=== PATIENT | female | born 1955 | race Caucasian/White ===

== ENCOUNTER 2018-11-28 17:17 | Inpatient (IN) | payer BC ==
[~2018-11-28] VITALS: Ht 160 cm; Wt 83.2 kg
[~2018-11-28 17:17] MED LIST: heparin, porcine-25,000 units/D5-250ml premix IV ONE
[2018-11-28] MEDS ORDERED: IBUP-24 PO (17:33)
[2018-11-28] MEDS ORDERED: magnesium 4gm in 100ml NS 100 ML IV PRN (18:00)
[2018-11-28] MEDS ORDERED: HYDROcodone/acetaminophen 5mg/325mg tablet PO PRN (18:00)
[2018-11-28] MEDS ORDERED: morphine 2 MG/ML inj. syringe IV PRN ×2 (18:00)
[2018-11-28] MEDS ORDERED: potassium CL 10mEq/100ml bag 100 ML IV PRN ×2 (18:00)
[2018-11-28] MEDS: K and/or MAG REPLACEMENT MC SCH (18:00)
[2018-11-28] MEDS ORDERED: acetaminophen 325mg tablet PO PRN ×2 (18:00)
[2018-11-28] MEDS ORDERED: magnesium 2GM in 50ml NS 50 ML IV PRN (18:00)
[2018-11-28] MEDS ORDERED: HYDROcodone/acetaminophen 10/325mg tab PO PRN (18:00)
[2018-11-28] MEDS ORDERED: diphenhydrAMINE 25mg capsule PO PRN (18:00)
[2018-11-28] MEDS ORDERED: ondansetron/PF 4mg/2ml inj IV PRN (18:00)
[2018-11-28] MEDS ORDERED: nitroGLYCERIN 0.4mg SUBLingual tab SL PRN (18:00)
[2018-11-28] MEDS ORDERED: atorvastatin 20mg tablet PO SCH (18:00)
[2018-11-28] MEDS ORDERED: magnesium hydroxide 30ml (MOM) UD suspension PO PRN (18:00)
[2018-11-28] MEDS ORDERED: mag hydrox/Alum hydrox/simeth 30ml oral suspension PO PRN (18:00)
[2018-11-28] MEDS ORDERED: potassium Cl 20 mEq SR tablet PO PRN (18:00)
[2018-11-28] MEDS ORDERED: normal saline 1000ml 1,000 ML IV SCH (18:00)
[2018-11-28] MEDS ORDERED: magnesium Cl slow-release 64mg tablet PO PRN (18:00)
[2018-11-28 18:08] LABS: BASOPHILS % (AUTO) 0.2 % (0-1); EOSINOPHILS # (AUTO) 0.1 X10'3 (0-0.9); EOSINOPHILS % (AUTO) 0.7 % (0-6); HEMATOCRIT 41.9 % (35.0-45.0); HEMOGLOBIN 14.5 g/dl (12.0-16.0); LYMPHOCYTES # (AUTO) 1.1 X10'3 (1.1-4.8); LYMPHOCYTES % (AUTO) 9.9 % (21-51); MEAN CORPUSCULAR HEMOGLOBIN 31.1 PG (27.0-31.0); MEAN CORPUSCULAR HGB CONC 34.5 g/dL (33.0-36.5); MEAN CORPUSCULAR VOLUME 90.1 FL (78-98); MEAN PLATELET VOLUME 7.7 FL (7.4-10.4); MONOCYTES # (AUTO) 0.5 X10'3 (0-0.9); MONOCYTES % (AUTO) 4.1 % (2-12); NEUTROPHILS # (AUTO) 9.3 X10'3 (1.8-7.7); NEUTROPHILS % (AUTO) 85.1 % (42-75); PLATELET COUNT 293 X10'3 (140-440); RED BLOOD COUNT 4.65 X10'6 (4.20-5.60); RED CELL DISTRIBUTION WIDTH 13.5 % (11.5-14.5)
[2018-11-28 18:24] LABS: PARTIAL THROMBOPLASTIN TIME 31 SECONDS (22-32)
[2018-11-28 18:26] LABS: ALANINE AMINOTRANSFERASE 83 U/L (12-78); ALBUMIN 3.7 G/DL (3.4-5.0); ALBUMIN/GLOBULIN RATIO 1.2 (1.1-1.5); ALKALINE PHOSPHATASE 123 IU/L (46-116); ANION GAP 10 (8-16); ASPARTATE AMINO TRANSFERASE 122 U/L (10-37); BLOOD UREA NITROGEN 11 MG/DL (7-18); CHLORIDE 110 MMOL/L (99-107); CREATININE 0.92 MG/DL (0.40-0.90); GLUCOSE 111 MG/DL (70-104); POTASSIUM 3.9 MMOL/L (3.5-5.1); SODIUM 143 MMOL/L (135-145); TOTAL CARBON DIOXIDE 22.7 MMOL/L (24-32); TOTAL PROTEIN 6.7 G/DL (6.4-8.2); eGFR 62 ML/MIN
[2018-11-28 18:28] LABS: HEMOGLOBIN A1C 5.7 % (4.5-6.2)
[2018-11-28] MEDS ORDERED: metoprolol tartrate 1mg/ml inj IV ONE (18:45)
[2018-11-28] MEDS ORDERED: nitroGLYCERIN 0.4mg/hour patch TD ONE (18:45)
[2018-11-28] MEDS ORDERED: metoprolol tartrate 25mg tablet PO ONE (18:45)
--- NOTE | 2018-11-28 18:50 | NUR ---
SPOKE TO DR HAN AND WET AND DRY SUGAR BIN OPERATOR CAITLIN: REGARDING PATIENT'S CP AND PREVIOUS MEDS GIVN AT [facility]. UNABLE TO FIND CHART FROM [facility] PATIENT RECEIVED 80 OR 85 MG LOVENOX SQ AT [facility] AND 3 BABY ASA AT HER PMD
[2018-11-28 18:52] LABS: CLARITY,URINE CLEAR (Clear); COLOR,URINE YELLOW (Yellow); GLUCOSE, URINE NEGATIVE (Neg); KETONES,URINE TRACE mg/dl (Neg); LEUKOCYTE ESTERASE ,URINE NEGATIVE (Neg); NITRITES, URINE NEGATIVE (Neg); OCCULT BLOOD,URINE NEGATIVE (Neg); PROTEIN,URINE NEGATIVE (Neg); UROBILINOGEN,URINE 0.2 E.U/dL (0.2-1.0)
[2018-11-28 18:55] LABS: UA COLLECTION TYPE CLN CATCH MIDSTREAM
[2018-11-28 18:56] LABS: MAGNESIUM 1.8 MG/DL (1.5-2.4)
[2018-11-28] MEDS ORDERED: aspirin 81mg tab.chew PO STA (19:00)
--- NOTE | 2018-11-28 19:02 | NUR ---
2ND PAGE FOR DR. MARTIN AT 19:02
--- NOTE | 2018-11-28 19:15 | NUR ---
DR MARTIN AND DR. THAOFS AT BEDSIDE NOW AND PTS SON AND ALSO AT BEDSIDE. DR. MARTIN AWARE THAT PT RECEIVED LOVENOX WHEN AT [facility] ER. VERBAL RECEIVED TO CANCEL THE ADTL LOVEVNOX NOW ORDERED AND TO START HER OLIVER THE HEPARIN GTT CARDIAC PROTOCOL. VERBAL ALSO TO DC CURRENT ORDER FOR CARVEDOLOL PT JUST RECEIVED METOPROLOL IV AND PO FROM US. OK TO GIVE THE 81 MG ASA , PT HAS ALREADY RECEIVED 3 BABY ASA FROM HER PCP.
[2018-11-28] MEDS ORDERED: heparin 25,000 UNIT/250ml bag 250 ML IV SCH (19:17)
--- NOTE | 2018-11-28 19:18 | NUR ---
PER DR GUERRIER: HOLD THIS PM DOSE OF COREG BECAUSE PATIENT RECEIVED 25 MG METOPROLOL AND 5MG IV METOPROLOL PER ER MD COBOS. VERBAL ORDERS TO START HEPARIN AT 1,000 UNITS/HR NO BOLUS & AGGRASTAT PER PROTOCOL WITH A LOADING DOSE.
[2018-11-28] MEDS ORDERED: heparin 10,000 units/1 ML INJ IV PRN (19:20)
[2018-11-28] MEDS ORDERED: heparin 10,000 units/1 ML INJ IV ONE (19:20)
[2018-11-28] MEDS ORDERED: tirofiban 5mg in NS 100mL 100 ML IV SCH (19:27)
--- NOTE | 2018-11-28 19:37 | NUR ---
heparin gtt started at 1,000 u hr, no bolus to be give per dr. sumner, current vss. pt to be npo at md, just went to get pt some dinner as she reports she has not eaten all day and is hungry. Awaiting to receive aggrostatin also.
[2018-11-28] MEDS: tirofiban 12.5mg in NS 250mL 250 ML IV SCH (19:43)
--- NOTE | 2018-11-28 19:55 | NUR ---
pt with diarrhea. she reports issues with diarrhea past few days and that is initially why she was seeing her PCP today. I requested that she use the [facility], but she insisted to go walk to [facility].
[2018-11-28] MEDS ORDERED: enoxaparin 80mg/0.8ml syringe SUBCUT SCH (20:00)
[2018-11-28] MEDS ORDERED: atropine 0.1mg/ml 10ml syringe ONE (20:00)
[2018-11-28] MEDS ORDERED: carVEDilol 3.125mg tablet PO SCH (20:00)
--- NOTE | 2018-11-28 20:00 | NUR ---
dr. bender at bedside for admission. pts sons now at bedside. pt given dinner tray. current vss. denies any cp.
--- NOTE | 2018-11-28 20:18 | NUR ---
PLAN TO GO TO [facility] SPECIAL[facility] IN AM WITH DR GUERRIER
[2018-11-28] MEDS ORDERED: famotidine 20mg tablet PO ONE (20:40)
--- NOTE | 2018-11-28 21:57 | NUR ---
EVANGELINA [phone] SON RAEGAN [phone]
--- NOTE | 2018-11-28 22:08 | NUR ---
DR SONG INFORMED OF TROPONIN 35.74 AND AWARE PATIETN ON HEAPARIN [id number] UNITS/HR AND AGGRASTAT AT 0.15 MCG/HR
--- NOTE | 2018-11-28 22:14 | NUR ---
DR FAREED VALDEZ
--- NOTE | 2018-11-28 22:25 | NUR ---
DR SONG AND I SPOKE TO DR GUERRIER VIA PHONE
--- NOTE | 2018-11-28 22:32 | NUR ---
SPOKE TO DR GUERRIER AND HE IS TAKING HER TO [facility]IL RECOVERY UNIT OPERATOR
--- NOTE | 2018-11-28 23:06 | NUR ---
DR GUERRIER IN ROOM: AGAIN EXPLAINED RISK AND BENFITS OF CARDIAC CATHETRIZATION. CONSENT SIGNED, GROIN SHAVED AND CHLORAPREP TO GROIN/LEGS AND HANDS/ ARMS DP AND PT PULSES MARKED: ALL 4: STRONG AND REGULAR PATIENT DENIES PAIN AT THIS TIME PATIENT WITH LEFT FOREARM 18 GAUGE WITH AGGRASTAT AT 0.15 MCG/KG/MIN RIGHT AC 20 GAUGE WITH NS AT 70 ML/HR AND HEPARIN GTT AT 1000UNITS/ HR AT BEDSIDE
[2018-11-28] MEDS ORDERED: iohexol 350 MG/1 ML 200ml bottle ONE (23:07)
[2018-11-28] MEDS ORDERED: heparin 1,000unit/ml 10ml vial 10 ML ONE (23:07)
[2018-11-28] MEDS ORDERED: LIDOcaine 1% (10mg/ml)w/preservative injection 20ml MDV ONE (23:07)
[2018-11-28] MEDS ORDERED: nitroGLYCERIN-Tridil 50MG/D5W 250 ML IV ONE (23:07)
[2018-11-28] MEDS ORDERED: iohexol 350 MG/ML 50ML vial IV ONE (23:07)
[2018-11-28] MEDS ORDERED: midazolam 2 mg/2 ml injection ONE (23:08)
[2018-11-28] MEDS ORDERED: fentaNYL/PF 50MCG/1 ML 2ML syringe ONE (23:08)
--- NOTE | 2018-11-28 23:13 | NUR ---
REPORT TO KINGSLEY LEOS
--- NOTE | 2018-11-28 23:20 | NUR ---
to cardiac cath technician with cardiac cath technician rn naomi has all patient belongings including ring, purse wallet and clothes
[2018-11-29] VITALS (32 sets, daily range): BP systolic 99–158; BP diastolic 57–89
[2018-11-29] MEDS ORDERED: ticagrelor 90mg tablet ONE (00:30)
--- NOTE | 2018-11-29 00:42 | NUR ---
Pt arrived to ICU room 2011 via hospital bed from director geophysical laboratory post coronary stent placement x2. Pt is awake & alert. Right femoral sheath is without bleeding/hematoma gauze dressing topped with occlusive dressing. Line is capped with heparin. Right pedal pulse is palpable & toes are warm with brisk capillary refill. Rhythm is sinus HR is 68. On room air oxygen saturation is 96%. Peripheral IV left AC with heparin infusing @ 1000 units/hr, Aggrastat infusing @ .15mcg/kg/min, NS @ 100ml/hr. No distress noted.
--- NOTE | 2018-11-29 01:15 | NUR ---
Zuniga cath placed #[id number]. Return is clear yellow urine. Pt tolerated procedure well.
[2018-11-29] MEDS ORDERED: OXAZEpam 15mg capsule PO PRN (01:25)
[2018-11-29] MEDS ORDERED: magnesium hydroxide 30ml (MOM) UD suspension PO PRN (01:25)
[2018-11-29] MEDS ORDERED: acetaminophen 325mg tablet PO PRN (01:25)
[2018-11-29] MEDS ORDERED: cyclobenzaprine 10mg tablet PO PRN (01:25)
[2018-11-29] MEDS ORDERED: HYDROcodone/acetaminophen 10/325mg tab PO PRN ×2 (01:25)
[2018-11-29] MEDS ORDERED: tirofiban 12.5mg in NS 250mL 250 ML IV SCH (01:30)
[2018-11-29] MEDS ORDERED: potassium Cl 20 mEq SR tablet PO ONE (01:30)
[2018-11-29] MEDS ORDERED: normal saline 1000ml 1,000 ML IV SCH (01:30)
[2018-11-29] MEDS ORDERED: furosemide 20 MG/2 ML vial IV ONE ×2 (01:30→16:00)
--- NOTE | 2018-11-29 02:00 | NUR ---
Pt again instructed to keep right leg straight. Small amount of bloody drainage noted on gauze dressing. No hematoma at tbis time. Drainage marked.
--- NOTE | 2018-11-29 02:20 | NUR ---
Pt became nauseated bearing down to move bowels heart rate down to 27 BPM Junctional rhythm. BP via arterial line right femoral sheath 70/38. Pt awake & talking throughout episode. Vomited 100 ml undigested food. Right femoral sheath without bleeding/hematoma. Rhythm returned to sinus HR 63. Denies chest pain.
[2018-11-29 05:55] LABS: BASOPHILS % (AUTO) 0.3 % (0-1); EOSINOPHILS # (AUTO) 0.2 X10'3 (0-0.9); EOSINOPHILS % (AUTO) 2.1 % (0-6); HEMATOCRIT 38.3 % (35.0-45.0); HEMOGLOBIN 13.2 g/dl (12.0-16.0); LYMPHOCYTES # (AUTO) 0.6 X10'3 (1.1-4.8); LYMPHOCYTES % (AUTO) 7.2 % (21-51); MEAN CORPUSCULAR HGB CONC 34.4 g/dL (33.0-36.5); MONOCYTES # (AUTO) 0.3 X10'3 (0-0.9); MONOCYTES % (AUTO) 3.3 % (2-12); NEUTROPHILS # (AUTO) 7.5 X10'3 (1.8-7.7); NEUTROPHILS % (AUTO) 87.1 % (42-75); PLATELET COUNT 305 X10'3 (140-440); RED BLOOD COUNT 4.25 X10'6 (4.20-5.60); RED CELL DISTRIBUTION WIDTH 13.6 % (11.5-14.5); WHITE BLOOD COUNT 8.6 X10'3 (4.5-11.0)
--- NOTE | 2018-11-29 06:18 | NUR ---
Problems reprioritized. Patient report given, questions answered & plan of care reviewed with Hipolito WYNN.
[2018-11-29 06:29] LABS: PARTIAL THROMBOPLASTIN TIME 100 SECONDS (22-32)
[2018-11-29 06:31] LABS: ALANINE AMINOTRANSFERASE 140 U/L (12-78); ALBUMIN 3.2 G/DL (3.4-5.0); ALBUMIN/GLOBULIN RATIO 1.1 (1.1-1.5); ALKALINE PHOSPHATASE 126 IU/L (46-116); ANION GAP 9 (8-16); ASPARTATE AMINO TRANSFERASE 246 U/L (10-37); BILIRUBIN,TOTAL 1.4 MG/DL (0.1-1.0); BLOOD UREA NITROGEN 10 MG/DL (7-18); BUN/CREATININE RATIO 11.9 (6.6-38.0); CALCIUM 8.1 MG/DL (8.5-10.1); CHLORIDE 109 MMOL/L (99-107); CREATININE 0.84 MG/DL (0.40-0.90); GLUCOSE 142 MG/DL (70-104); POTASSIUM 3.4 MMOL/L (3.5-5.1); SODIUM 141 MMOL/L (135-145); TOTAL CARBON DIOXIDE 22.9 MMOL/L (24-32); TOTAL PROTEIN 6.1 G/DL (6.4-8.2); eGFR 69 ML/MIN
[2018-11-29 06:39] LABS: BILIRUBIN,DIRECT 0.4 MG/DL (0-0.3); CHOL/HDL RATIO 3.5 (0.00-4.99); CHOLESTEROL 176 MG/DL (0-200); HDL CHOLESTEROL 50 MG/DL (35-60); LDL CHOLESTEROL 115 MG/DL (50-100); MAGNESIUM 1.8 MG/DL (1.5-2.4); TRIGLYCERIDES 51 MG/DL (20-135)
[2018-11-29] MEDS: K and/or MAG REPLACEMENT MC SCH (08:00)
[2018-11-29] MEDS: docusate sod 100mg capsule PO SCH ×2 (08:00→20:02)
[2018-11-29] MEDS: metoprolol succinate 25mg (24-HOUR) SR. Tablet PO SCH (08:00)
[2018-11-29] MEDS ORDERED: metoprolol tartrate 12.5mg (1/2 tablet) PO SCH (08:00)
[2018-11-29] MEDS ORDERED: lisinopril 10 MG tablet PO SCH (08:00)
[2018-11-29] MEDS: lisinopril 5mg tablet PO SCH (09:29)
[2018-11-29] MEDS: atorvastatin 20mg tablet PO SCH (09:29)
[2018-11-29] MEDS: aspirin 81mg tablet.DR PO SCH (09:29)
[2018-11-29] MEDS: ticagrelor 90mg tablet PO SCH ×2 (09:29→20:02)
[2018-11-29] MEDS ORDERED: morphine 2 MG/ML inj. syringe IV ONE (09:30)
[2018-11-29] MEDS: tirofiban 12.5mg in NS 250mL 250 ML IV SCH ×2 (09:51→23:53)
[2018-11-29] MEDS ORDERED: atropine 0.1mg/ml 10ml syringe IV ONE (10:50)
[2018-11-29] MEDS: potassium Cl 20 mEq SR tablet PO PRN ×2 (12:52→17:33)
--- NOTE | 2018-11-29 18:10 | NUR ---
Patient in room CICU 2011. I have received report from Hipolito WYNN and had the opportunity to ask questions and assume patient care. Pt received awake alert & oriented clear speech. at bedside attentive and supportive. Rhythm is sinus without ectopy. Oxygen saturation is 96% on room air. Right groin with occlusive dressing no bleeding or hematoma. Right pedal pulse is palpable. Brise noted to right lower abdomen. Pt denies chest discomfort/pain. Peripheral IV to right AC #20G with Aggrastat infusing @0.15mcg/kg/min. IV site is patent without infiltration. Indwelling Zuniga cath drains clear yellow urine.Dinner tray served. Addendum: 11/29/18 at 1915 by Samira Choudhary RN Bruise noted to right lower abdomen, lateral.
--- NOTE | 2018-11-29 18:25 | NUR ---
Pt states she is experiencing chest aching/ pressure to left upper chest after she repositioned self. No SOB oxygen saturation is 97% BP 130/69.Remains in sinus rhythm HR 68. Pt declines nitroglycerine stating the discomfort is 1/10 and has thus subsided. Will continue to monitor, draw troponin & obtain 12 lead EKG.
[2018-11-29 19:15] LABS: CREATINE KINASE 455 U/L (26-192)
--- NOTE | 2018-11-29 20:29 | NUR ---
Call placed to Dr Sage regarding lab results, troponin is trending down at 26.86 CK 455. Physician also aware of pts earlier complaint of chest pressure 1/10 subsiding shortly after pts complaint & pt declining nitroglycerine sub lingual. No further episodes of chest discomfort at this time. Orders received for activity & to discontinue pineda cath in am.
--- NOTE | 2018-11-29 21:00 | NUR ---
Up to [facility] bowels moved. Small amount of yellow diarrhea. Pt states she has had diarrhea off & on for a month and was going to her doctor to address this the day she had the heart attack. Stool with foul odor. Will monitor.
[2018-11-29] MEDS: temazepam 15mg capsule PO PRN (21:16)
[2018-11-30] VITALS (23 sets, daily range): BP systolic 106–145; BP diastolic 54–84
[2018-11-30] MEDS: temazepam 15mg capsule PO PRN ×2 (00:02→21:09)
--- NOTE | 2018-11-30 00:50 | NUR ---
Call placed to Dr Sage for Aggrastat order clarification. Infusion is to continue until current bag is complete.
--- NOTE | 2018-11-30 06:00 | NUR ---
Restful night post Restoril, pt slept for long interval. No further complaints of chest pressure/discomfort. AM labs are pending at this time. Right groin dressing changed as it was found loose. Zuniga cath D/C'd at this time. Patient given written material regarding medications she is currently taking & written material regarding coronary arteries & post heart attack. Patient is attentive and receptive to education.
[2018-11-30 06:12] LABS: BASOPHILS % (AUTO) 0.2 % (0-1); EOSINOPHILS # (AUTO) 0.3 X10'3 (0-0.9); EOSINOPHILS % (AUTO) 4.1 % (0-6); HEMATOCRIT 37.5 % (35.0-45.0); HEMOGLOBIN 12.7 g/dl (12.0-16.0); LYMPHOCYTES # (AUTO) 1.2 X10'3 (1.1-4.8); LYMPHOCYTES % (AUTO) 14.2 % (21-51); MEAN CORPUSCULAR HEMOGLOBIN 30.9 PG (27.0-31.0); MEAN CORPUSCULAR HGB CONC 33.9 g/dL (33.0-36.5); MONOCYTES # (AUTO) 0.7 X10'3 (0-0.9); MONOCYTES % (AUTO) 8.3 % (2-12); NEUTROPHILS % (AUTO) 73.2 % (42-75); PLATELET COUNT 272 X10'3 (140-440); RED BLOOD COUNT 4.12 X10'6 (4.20-5.60); RED CELL DISTRIBUTION WIDTH 13.4 % (11.5-14.5); WHITE BLOOD COUNT 8.2 X10'3 (4.5-11.0)
--- NOTE | 2018-11-30 06:19 | NUR ---
Problems reprioritized. Patient report given, questions answered & plan of care reviewed with Jaqueline WYNN.
[2018-11-30 06:56] LABS: ALANINE AMINOTRANSFERASE 119 U/L (12-78); ALKALINE PHOSPHATASE 113 IU/L (46-116); ANION GAP 9 (8-16); ASPARTATE AMINO TRANSFERASE 157 U/L (10-37); BILIRUBIN,TOTAL 1.3 MG/DL (0.1-1.0); BLOOD UREA NITROGEN 13 MG/DL (7-18); BUN/CREATININE RATIO 14.1 (6.6-38.0); CALCIUM 8.2 MG/DL (8.5-10.1); CHLORIDE 109 MMOL/L (99-107); CREATININE 0.92 MG/DL (0.40-0.90); GLUCOSE 110 MG/DL (70-104); MAGNESIUM 2.2 MG/DL (1.5-2.4); PHOSPHORUS 2.7 MG/DL (2.3-4.5); POTASSIUM 4.4 MMOL/L (3.5-5.1); SODIUM 142 MMOL/L (135-145); TOTAL CARBON DIOXIDE 24.5 MMOL/L (24-32); TOTAL PROTEIN 5.9 G/DL (6.4-8.2); eGFR 62 ML/MIN
[2018-11-30 07:31] LABS: PARTIAL THROMBOPLASTIN TIME 27 SECONDS (22-32)
[2018-11-30] MEDS: K and/or MAG REPLACEMENT MC SCH (08:00)
[2018-11-30] MEDS: lisinopril 5mg tablet PO SCH (08:00)
[2018-11-30] MEDS: metoprolol succinate 25mg (24-HOUR) SR. Tablet PO SCH (08:59)
[2018-11-30] MEDS: ticagrelor 90mg tablet PO SCH ×2 (08:59→20:36)
[2018-11-30] MEDS: atorvastatin 20mg tablet PO SCH (08:59)
[2018-11-30] MEDS: docusate sod 100mg capsule PO SCH ×2 (08:59→20:00)
[2018-11-30] MEDS: aspirin 81mg tablet.DR PO SCH (09:00)
--- NOTE | 2018-11-30 13:02 | NUR ---
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 Pt given written and verbal education. Pt seen also by Dr James, will transfer to Telemetry floor, orders written.
--- NOTE | 2018-11-30 18:18 | NUR ---
Patient in room CICU 2011. I have received report from Jaqueline WYNN and had the opportunity to ask questions and assume patient care. Pt received awake alert & oriented. On room air oxygen saturation is 98%. Right groin occlusive dressing is intact & dry, pedal pulses are strong. Right groin & right lower lateral abdomen with ecchymosis. Rhythm is sinus HR 77 without ectopy. Pt has transfer orders to telemetry, waiting on room availability.No distress at this time, pt denies pain no SOB. Pts mother is at bedside supportive & attentive.
[2018-11-30] MEDS: apixaban 5mg tablet PO SCH (20:35)
[2018-11-30] MEDS: tirofiban 12.5mg in NS 250mL 250 ML IV SCH (22:28)
[2018-12-01] VITALS (13 sets, daily range): BP systolic 114–144; BP diastolic 61–81
[2018-12-01] MEDS: temazepam 15mg capsule PO PRN (01:24)
[2018-12-01 05:36] LABS: PARTIAL THROMBOPLASTIN TIME 30 SECONDS (22-32)
[2018-12-01 05:44] LABS: ALANINE AMINOTRANSFERASE 89 U/L (12-78); ALBUMIN 3.1 G/DL (3.4-5.0); ALKALINE PHOSPHATASE 112 IU/L (46-116); ANION GAP 11 (8-16); ASPARTATE AMINO TRANSFERASE 74 U/L (10-37); BILIRUBIN,TOTAL 0.9 MG/DL (0.1-1.0); BLOOD UREA NITROGEN 14 MG/DL (7-18); BUN/CREATININE RATIO 17.7 (6.6-38.0); CALCIUM 8.7 MG/DL (8.5-10.1); CHLORIDE 109 MMOL/L (99-107); CREATININE 0.79 MG/DL (0.40-0.90); GLUCOSE 112 MG/DL (70-104); MAGNESIUM 1.9 MG/DL (1.5-2.4); PHOSPHORUS 3.1 MG/DL (2.3-4.5); POTASSIUM 3.6 MMOL/L (3.5-5.1); SODIUM 142 MMOL/L (135-145); TOTAL CARBON DIOXIDE 22.3 MMOL/L (24-32); TOTAL PROTEIN 6.3 G/DL (6.4-8.2); eGFR 74 ML/MIN
[2018-12-01 06:22] LABS: BASOPHILS % (AUTO) 0.4 % (0-1); EOSINOPHILS # (AUTO) 0.5 X10'3 (0-0.9); EOSINOPHILS % (AUTO) 5.6 % (0-6); HEMATOCRIT 38.2 % (35.0-45.0); HEMOGLOBIN 12.9 g/dl (12.0-16.0); LYMPHOCYTES # (AUTO) 1.9 X10'3 (1.1-4.8); LYMPHOCYTES % (AUTO) 20.4 % (21-51); MEAN CORPUSCULAR HEMOGLOBIN 30.9 PG (27.0-31.0); MEAN CORPUSCULAR HGB CONC 33.9 g/dL (33.0-36.5); MEAN CORPUSCULAR VOLUME 91.1 FL (78-98); MEAN PLATELET VOLUME 8.2 FL (7.4-10.4); MONOCYTES # (AUTO) 0.8 X10'3 (0-0.9); MONOCYTES % (AUTO) 8.4 % (2-12); NEUTROPHILS % (AUTO) 65.2 % (42-75); PLATELET COUNT 251 X10'3 (140-440); RED BLOOD COUNT 4.19 X10'6 (4.20-5.60); RED CELL DISTRIBUTION WIDTH 13.4 % (11.5-14.5); WHITE BLOOD COUNT 9.2 X10'3 (4.5-11.0)
--- NOTE | 2018-12-01 06:30 | NUR ---
Patient in room CICU 2011. I have received report from KINGSLEY Hogan and had the opportunity to ask questions and assume patient care.
--- NOTE | 2018-12-01 06:30 | NUR ---
Problems reprioritized. Patient report given, questions answered & plan of care reviewed with Bernardo WYNN.
[2018-12-01] MEDS: aspirin 81mg tablet.DR PO SCH (07:56)
[2018-12-01] MEDS: lisinopril 5mg tablet PO SCH (07:56)
[2018-12-01] MEDS: ticagrelor 90mg tablet PO SCH (07:56)
[2018-12-01] MEDS: K and/or MAG REPLACEMENT MC SCH (07:56)
[2018-12-01] MEDS: apixaban 5mg tablet PO SCH (07:56)
[2018-12-01] MEDS: atorvastatin 20mg tablet PO SCH (07:56)
[2018-12-01] MEDS: metoprolol succinate 25mg (24-HOUR) SR. Tablet PO SCH (07:56)
[2018-12-01] MEDS: docusate sod 100mg capsule PO SCH (07:57)
[2018-12-01] MEDS ORDERED: ASPI-1071 PO (08:37)
[2018-12-01] MEDS ORDERED: APIX5TAB3 PO (08:37)
[2018-12-01] MEDS ORDERED: LISI-642 PO (08:37)
[2018-12-01] MEDS ORDERED: ATOR20TA66 PO (08:37)
[2018-12-01] MEDS ORDERED: NITR0.4T51 SL (08:37)
[2018-12-01] MEDS ORDERED: METO-395 PO (08:37)
[2018-12-01] MEDS ORDERED: TICA90TA PO (08:37)
--- NOTE | 2018-12-01 10:05 | NUR ---
Pt discharge complete. IV's removed with cannulas intact. Pt with discharge instructions in hand. Prescriptions called to RX in [place]. Pt waiting on Dr BALDERAS to visit before she leaves at his request.
== END 2018-12-01 10:23 | disposition home or self-care (01) | DRG 247 ==
LOC: ER 17:18 → MED 3N 23:47 → CICU 2S 11-29 00:52
PROVIDERS: ADMIT Family Medicine; ATTEND Family Medicine
PROC: 4A023N7 Measurement of Cardiac Sampling and Pressure, Left Heart, Percutaneous Approach (ICD-10-PCS; principal; 2018-11-28)
PROC: 027135Z Dilation of Coronary Artery, Two Arteries with Two Drug-eluting Intraluminal Devices, Percutaneous Approach (ICD-10-PCS; 2018-11-28)
PROC: B2111ZZ Fluoroscopy of Multiple Coronary Arteries using Low Osmolar Contrast (ICD-10-PCS; 2018-11-28)
PROC: B2151ZZ Fluoroscopy of Left Heart using Low Osmolar Contrast (ICD-10-PCS; 2018-11-28)
DX: I21.4 Non-ST elevation (NSTEMI) myocardial infarction (principal); E66.9 Obesity, unspecified; I95.9 Hypotension, unspecified; E78.5 Hyperlipidemia, unspecified; I10 Essential (primary) hypertension; K21.9 Gastro-esophageal reflux disease without esophagitis; I51.3 Intracardiac thrombosis, not elsewhere classified; K57.90 Diverticulosis of intestine, part unspecified, without perforation or abscess without bleeding; Z79.82 Long term (current) use of aspirin; Z79.899 Other long term (current) drug therapy; Z82.49 Family history of ischemic heart disease and other diseases of the circulatory system; Z90.49 Acquired absence of other specified parts of digestive tract; Z90.710 Acquired absence of both cervix and uterus; Z95.5 Presence of coronary angioplasty implant and graft; Z68.32 Body mass index [BMI] 32.0-32.9, adult
CPT/HCPCS: 93306; 93458; 96361; 96374; 99285; C9600; C9606; 36415; 71045; 80048; 80053; 80061; 80076; 81003; 82550; 83036; 83735; 83880; 84100; 84484; 85025; 85347; 85610; 85730; 87081; 93005; 93308; 99152; 99153; A4620; A6258; C1725; C1769; C1874; C1894; G0378; J0461; J1644; J1650; J1940; J2001; J2250; J2270; J2405; J3010; J3246; J3475; J3480; J3490; J7030; J7040; Q9967

== ENCOUNTER 2018-12-24 14:22 | Outpatient (CLI) | payer BC ==
[~2018-12-24 14:22] MED LIST changes: +APIX5TAB3 PO; +ASPI-1071 PO; +ATOR20TA66 PO; +LISI-642 PO; +METO-395 PO; +NITR0.4T51 SL; +TICA90TA PO; -heparin, porcine-25,000 units/D5-250ml premix IV ONE
== END 2018-12-24 23:59 | disposition home or self-care (01) ==
LOC: CARD DIAG 14:22
PROVIDERS: ATTEND Internal Medicine Cardiovascular Disease
DX: I08.0 Rheumatic disorders of both mitral and aortic valves (principal); I25.10 Atherosclerotic heart disease of native coronary artery without angina pectoris; I10 Essential (primary) hypertension; Z95.5 Presence of coronary angioplasty implant and graft
CPT/HCPCS: 93306

== ENCOUNTER 2019-01-21 09:44 | Observation (INO) | payer BC ==
[2019-01-20 14:57] LABS: BASOPHILS % (AUTO) 0.4 % (0-1); EOSINOPHILS # (AUTO) 0.4 X10'3 (0-0.9); EOSINOPHILS % (AUTO) 3.8 % (0-6); HEMATOCRIT 39.7 % (35.0-45.0); HEMOGLOBIN 13.4 g/dl (12.0-16.0); LYMPHOCYTES # (AUTO) 2.6 X10'3 (1.1-4.8); LYMPHOCYTES % (AUTO) 26.1 % (21-51); MEAN CORPUSCULAR HGB CONC 33.9 g/dL (33.0-36.5); MEAN CORPUSCULAR VOLUME 91.5 FL (78-98); MEAN PLATELET VOLUME 7.9 FL (7.4-10.4); MONOCYTES # (AUTO) 0.6 X10'3 (0-0.9); MONOCYTES % (AUTO) 6.1 % (2-12); NEUTROPHILS # (AUTO) 6.4 X10'3 (1.8-7.7); NEUTROPHILS % (AUTO) 63.6 % (42-75); PLATELET COUNT 316 X10'3 (140-440); RED BLOOD COUNT 4.33 X10'6 (4.20-5.60); RED CELL DISTRIBUTION WIDTH 13.5 % (11.5-14.5)
[2019-01-20 15:06] LABS: ALBUMIN 3.6 G/DL (3.4-5.0); ANION GAP 11 (8-16); BLOOD UREA NITROGEN 17 MG/DL (7-18); BUN/CREATININE RATIO 17.2 (6.6-38.0); CALCIUM 9.3 MG/DL (8.5-10.1); CHLORIDE 109 MMOL/L (99-107); CREATININE 0.99 MG/DL (0.40-0.90); GLUCOSE 123 MG/DL (70-104); POTASSIUM 3.8 MMOL/L (3.5-5.1); SODIUM 143 MMOL/L (135-145); eGFR 57 ML/MIN
[2019-01-20 15:11] LABS: PARTIAL THROMBOPLASTIN TIME 27 SECONDS (22-32)
[~2019-01-21] VITALS: Ht 157.5 cm; Wt 84.0 kg
[2019-01-21] VITALS (16 sets, daily range): BP systolic 101–171; BP diastolic 62–98
[2019-01-21] MEDS ORDERED: diphenhydrAMINE 25mg capsule PO PRN (10:05)
[2019-01-21] MEDS ORDERED: LORazepam 0.5 MG tablet PO PRN (10:05)
[2019-01-21] MEDS ORDERED: LIDOcaine/PRILOcaine 5gm cream TP ONE (10:30)
[2019-01-21] MEDS ORDERED: ATOR40TA PO (10:39)
[2019-01-21] MEDS ORDERED: NITR0.4T51 SL (10:39)
[2019-01-21] MEDS ORDERED: LISI-642 PO (10:39)
[2019-01-21] MEDS ORDERED: TICA90TA PO (10:39)
[2019-01-21] MEDS ORDERED: ASPI81TA52 PO (10:39)
[2019-01-21] MEDS ORDERED: APIX5TAB3 PO (10:39)
[2019-01-21] MEDS ORDERED: METO-395 PO (10:39)
[2019-01-21] MEDS: normal saline 1,000 ML IV SCH ×2 (10:53→21:27)
[2019-01-21] MEDS ORDERED: LIDOcaine 1% (10mg/ml)w/preservative injection 20ml MDV ONE (14:41)
[2019-01-21] MEDS ORDERED: heparin 1,000unit/ml 10ml vial 10 ML ONE (14:41)
[2019-01-21] MEDS ORDERED: midazolam 2 mg/2 ml injection ONE (14:41)
[2019-01-21] MEDS ORDERED: fentaNYL/PF 50MCG/1 ML 2ML syringe ONE (14:41)
[2019-01-21] MEDS ORDERED: verapamil 2.5 mg/ml inj IV ONE (14:41)
[2019-01-21] MEDS ORDERED: iohexol 350 MG/1 ML 200ml bottle ONE (14:42)
[2019-01-21] MEDS ORDERED: nitroGLYCERIN-Tridil 50MG/D5W 250 ML IV ONE (14:42)
[2019-01-21] MEDS ORDERED: iohexol 350 MG/ML 50ML vial IV ONE (14:42)
[2019-01-21] MEDS ORDERED: heparin 25,000 UNIT/250ml bag 250 ML IV ONE (15:46)
[2019-01-21] MEDS ORDERED: iohexol 350MG/ML 100ml bottle IV ONE (15:55)
[2019-01-21] MEDS ORDERED: ticagrelor 90mg tablet ONE (16:32)
[2019-01-21] MEDS ORDERED: nitroGLYCERIN 0.4mg SUBLingual tab SL PRN (17:10)
[2019-01-21] MEDS ORDERED: OXAZEpam 15mg capsule PO PRN (17:15)
[2019-01-21] MEDS ORDERED: magnesium hydroxide 30ml (MOM) UD suspension PO PRN (17:15)
[2019-01-21] MEDS ORDERED: acetaminophen 325mg tablet PO PRN (17:15)
[2019-01-21] MEDS ORDERED: cyclobenzaprine 10mg tablet PO PRN (17:15)
[2019-01-21] MEDS ORDERED: HYDROcodone/acetaminophen 10/325mg tab PO PRN ×2 (17:15)
--- NOTE | 2019-01-21 18:45 | NUR ---
Problems reprioritized. Patient report given, questions answered & plan of care reviewed with KINGSLEY Muir, will be bringigns pt to rm# [id number] shortly.
[2019-01-21 18:51] LABS: ISTAT HGB ART 11.9 g/dl (12.0-16.0); ISTAT Hct ART 35 %PCV (35-48); ISTAT O2 SATURATION ARTERIAL 98 % (95-98); ISTAT SOURCE ART
[2019-01-21 18:51] LABS: ISTAT Hct MIX 34 %PCV (35-48); ISTAT O2 SATURATION MIX VENOUS 70 % (60-80); ISTAT SOURCE MIX
--- NOTE | 2019-01-21 19:35 | NUR ---
VSS, pt transferred to [facility] rm#[id number], pt's radial vasc band in stable condition, groin dsg CDI and femstop in place, pt is in stable condition, and pt's at bedside.
[2019-01-21] MEDS ORDERED: ticagrelor 90mg tablet PO SCH (20:00)
[2019-01-21] MEDS: ticagrelor 90mg tablet PO SCH (20:00)
--- NOTE | 2019-01-21 20:00 | NUR ---
Patient in room MED 313. I have received report from Danni WYNN (short stay) and had the opportunity to ask questions and assume patient care. Cass WYNN reported administered Brilinta 90 mg in short stay. asa 81mg and EKG needed. pt transfered to bed laying flat, femstop and radial stop engaged and dressing C/D/I. education provided r/t laying flat, fall precautions.
[2019-01-21 20:38] LABS: BASOPHILS % (AUTO) 0.4 % (0-1); EOSINOPHILS # (AUTO) 0.1 X10'3 (0-0.9); HEMATOCRIT 38.2 % (35.0-45.0); HEMOGLOBIN 12.9 g/dl (12.0-16.0); LYMPHOCYTES # (AUTO) 1.9 X10'3 (1.1-4.8); LYMPHOCYTES % (AUTO) 14.7 % (21-51); MEAN CORPUSCULAR HEMOGLOBIN 30.9 PG (27.0-31.0); MEAN CORPUSCULAR HGB CONC 33.8 g/dL (33.0-36.5); MEAN CORPUSCULAR VOLUME 91.5 FL (78-98); MEAN PLATELET VOLUME 7.9 FL (7.4-10.4); MONOCYTES # (AUTO) 0.9 X10'3 (0-0.9); MONOCYTES % (AUTO) 6.7 % (2-12); NEUTROPHILS % (AUTO) 77.2 % (42-75); PLATELET COUNT 282 X10'3 (140-440); RED BLOOD COUNT 4.18 X10'6 (4.20-5.60); RED CELL DISTRIBUTION WIDTH 13.5 % (11.5-14.5); WHITE BLOOD COUNT 12.9 X10'3 (4.5-11.0)
[2019-01-21 20:47] LABS: ALBUMIN 3.5 G/DL (3.4-5.0); ANION GAP 13 (8-16); BLOOD UREA NITROGEN 16 MG/DL (7-18); BUN/CREATININE RATIO 17.6 (6.6-38.0); CALCIUM 8.9 MG/DL (8.5-10.1); CHLORIDE 109 MMOL/L (99-107); CREATININE 0.91 MG/DL (0.40-0.90); GLUCOSE 125 MG/DL (70-104); POTASSIUM 3.7 MMOL/L (3.5-5.1); SODIUM 143 MMOL/L (135-145); eGFR 63 ML/MIN
[2019-01-21] MEDS: aspirin 81mg tab.chew PO SCH (21:28)
[2019-01-22 02:35] VITALS: BP 101/46
[2019-01-22 06:00] VITALS: BP 127/63
--- NOTE | 2019-01-22 06:18 | NUR ---
Problems reprioritized. Patient report given,Maggy WYNN questions answered & plan of care reviewed with. Bedside report given, Right dressing groin marked, no hematoma. bed lock and low. bed alarm on .
--- NOTE | 2019-01-22 06:44 | NUR ---
Patient in room MED 313. I have received report from KINGSLEY Acuna and had the opportunity to ask questions and assume patient care.
[2019-01-22] MEDS: ticagrelor 90mg tablet PO SCH (07:52)
[2019-01-22] MEDS: aspirin 81mg tab.chew PO SCH (07:52)
[2019-01-22] MEDS ORDERED: lisinopril 5mg tablet PO SCH (08:00)
[2019-01-22] MEDS ORDERED: apixaban 5mg tablet PO SCH (08:00)
[2019-01-22] MEDS ORDERED: atorvastatin 20mg tablet PO SCH (08:00)
[2019-01-22] MEDS ORDERED: aspirin 81mg tablet.DR PO SCH (08:00)
[2019-01-22] MEDS ORDERED: metoprolol succinate 25mg (24-HOUR) SR. Tablet PO SCH (08:00)
[2019-01-22 08:08] LABS: BASOPHILS % (AUTO) 0.3 % (0-1); EOSINOPHILS # (AUTO) 0.3 X10'3 (0-0.9); EOSINOPHILS % (AUTO) 3.4 % (0-6); HEMOGLOBIN 11.7 g/dl (12.0-16.0); LYMPHOCYTES # (AUTO) 1.7 X10'3 (1.1-4.8); LYMPHOCYTES % (AUTO) 22.1 % (21-51); MEAN CORPUSCULAR HEMOGLOBIN 31.6 PG (27.0-31.0); MEAN CORPUSCULAR HGB CONC 34.3 g/dL (33.0-36.5); MEAN CORPUSCULAR VOLUME 92.3 FL (78-98); MEAN PLATELET VOLUME 7.8 FL (7.4-10.4); MONOCYTES # (AUTO) 0.6 X10'3 (0-0.9); MONOCYTES % (AUTO) 7.8 % (2-12); NEUTROPHILS # (AUTO) 5.2 X10'3 (1.8-7.7); NEUTROPHILS % (AUTO) 66.4 % (42-75); PLATELET COUNT 245 X10'3 (140-440); RED BLOOD COUNT 3.69 X10'6 (4.20-5.60); RED CELL DISTRIBUTION WIDTH 13.6 % (11.5-14.5); WHITE BLOOD COUNT 7.9 X10'3 (4.5-11.0)
[2019-01-22 08:27] LABS: ALANINE AMINOTRANSFERASE 23 U/L (12-78); ALBUMIN 2.9 G/DL (3.4-5.0); ALKALINE PHOSPHATASE 88 IU/L (46-116); ANION GAP 7 (8-16); ASPARTATE AMINO TRANSFERASE 22 U/L (10-37); BILIRUBIN,TOTAL 0.7 MG/DL (0.1-1.0); BLOOD UREA NITROGEN 15 MG/DL (7-18); BUN/CREATININE RATIO 15.8 (6.6-38.0); CALCIUM 8.1 MG/DL (8.5-10.1); CHLORIDE 111 MMOL/L (99-107); CREATININE 0.95 MG/DL (0.40-0.90); GLUCOSE 91 MG/DL (70-104); SODIUM 143 MMOL/L (135-145); TOTAL CARBON DIOXIDE 24.9 MMOL/L (24-32); TOTAL PROTEIN 5.9 G/DL (6.4-8.2); eGFR 60 ML/MIN
--- NOTE | 2019-01-22 14:15 | NUR ---
pt. discharged from facility at 1200. pt. declined escort to lobby and left with her . all paper work was explained to pt and signed. pt. declined f/u jasen for CHF but understands she needs f/u jasen. with PCP and solar fabrication technician. pt. had no new meds to call in. pt. IV was d/c intact. pt. left with all belongings.
== END 2019-01-22 11:55 | disposition home or self-care (01) ==
LOC: SSTAY O 09:44 → MED 3N 20:17
PROVIDERS: ADMIT Internal Medicine Cardiovascular Disease; ATTEND Internal Medicine Cardiovascular Disease
DX: I25.10 Atherosclerotic heart disease of native coronary artery without angina pectoris (principal); R07.89 Other chest pain; R94.30 Abnormal result of cardiovascular function study, unspecified; I10 Essential (primary) hypertension; E78.5 Hyperlipidemia, unspecified; I25.2 Old myocardial infarction; K21.9 Gastro-esophageal reflux disease without esophagitis; Z95.5 Presence of coronary angioplasty implant and graft; Z79.01 Long term (current) use of anticoagulants; Z79.02 Long term (current) use of antithrombotics/antiplatelets; Z79.82 Long term (current) use of aspirin; Z79.899 Other long term (current) drug therapy
CPT/HCPCS: 36415; 80048; 80053; 82803; 85014; 85025; 85347; 85610; 85730; 87081; 93005; 93460; C1725; C1769; C1874; C1894; C9600; G0378; J1644; J2001; J2250; J3010; J7030; Q0163; Q9967; 99152; 99153; A4620; A6258; J3490